=== PATIENT | male | born 1950 | race Caucasian/White ===

== ENCOUNTER 2019-01-26 17:13 | Emergency (ER) | payer MEDICARE | END 2019-01-26 18:08 | disposition home or self-care (01) | LOC: SCSER 17:13 | DX: L91.8 Other hypertrophic disorders of the skin (principal); Z79.899 Other long term (current) drug therapy | CPT/HCPCS: 99282 ==

== ENCOUNTER 2023-12-22 18:06 | Emergency (ER) | payer MEDICARE, OTHER ==
[2023-12-22] MEDS ORDERED: Acetaminophen 500 MG TAB ONE (18:24)
[2023-12-22] MEDS ORDERED: HYDROcodone/Acetaminophen 5/325 mg Tablet ONE (19:23)
== END 2023-12-22 22:02 | disposition home or self-care (01) ==
LOC: ERS 18:06
DX: S22.068A Other fracture of T7-T8 thoracic vertebra, initial encounter for closed fracture (principal); R94.02 Abnormal brain scan; E11.9 Type 2 diabetes mellitus without complications; I10 Essential (primary) hypertension; Z79.899 Other long term (current) drug therapy; W11.XXXA Fall on and from ladder, initial encounter
CPT/HCPCS: 70450; 71045; 72125; 72128; 72131

== ENCOUNTER 2024-03-10 14:41 | Outpatient (CLI) | payer MEDICARE | END 2024-03-10 14:42 | disposition home or self-care (01) | LOC: SCSRAD 14:41 | PROVIDERS: ATTEND Family Medicine | DX: S69.91XA Unspecified injury of right wrist, hand and finger(s), initial encounter (principal) ==

== ENCOUNTER 2024-03-17 12:26 | Outpatient (CLI) | payer MEDICARE | END 2024-03-17 12:27 | disposition home or self-care (01) | LOC: SCSRAD 12:26 | PROVIDERS: ATTEND Physician Assistant Surgical | DX: S22.008A Other fracture of unspecified thoracic vertebra, initial encounter for closed fracture (principal); M51.34 Other intervertebral disc degeneration, thoracic region | CPT/HCPCS: 72072 ==

== ENCOUNTER 2024-04-22 11:12 | Outpatient (CLI) | payer MEDICARE, OTHER | END 2024-04-22 11:13 | disposition home or self-care (01) | LOC: SCSRAD 11:12 | PROVIDERS: ATTEND Nurse Practitioner Family | DX: M25.562 Pain in left knee (principal); M79.652 Pain in left thigh; M11.262 Other chondrocalcinosis, left knee; M16.12 Unilateral primary osteoarthritis, left hip; M25.852 Other specified joint disorders, left hip ==